=== PATIENT | female | born 1980 | race African-American/Black ===

== ENCOUNTER 2022-03-25 11:25 | Observation (INO) ==
[2022-03-25 11:55] LABS: Basophils % 0.1 % (0.0-0.8); Eosinophils % 0.1 % (0.00-10.9); Hematocrit 36.7 VOL% (35.7-47.0); Hemoglobin 11.5 GM/DL (12.0-16.0); Immature Granulocytes % 0.4 %; Immature Granulocytes Absolute 0.07 #; Lymphocytes # 1.1 10*3/uL (1.4-4.0); Lymphocytes % 6.6 % (21.3-54.2); Mean Corpuscular HGB Conc 31.3 GM/DL (32-36); Mean Corpuscular Volume 85.5 FL (87-102); Monocytes # 0.7 10*3/uL (0.11-0.8); Monocytes % 4.1 % (1.7-12.7); Neutrophils % 88.7 % (38.7-73.9); Platelet Count 292 T/CUMM (130-400); Red Blood Count 4.29 MC/CUMM (3.8-5.5); Red Cell Distribution Width 17.1 % (9.3-17.3); White Blood Count 16.2 T/CUMM (4-12)
[2022-03-25 12:16] LABS: Albumin 3.8 G/DL (3.4-5.0); Bilirubin,Total 0.8 MG/DL (0.20-1.00); Calcium 8.7 MG/DL (8.5-10.1); Osmolality,Calculated 283.4 MOS/KG (273-304); Potassium 3.1 MMOL/L (3.5-5.1); Total Protein 6.8 G/DL (6.4-8.2)
[2022-03-25 12:22] LABS: Band Neutrophils 6 % (0-10); Lymphocytes 3 % (20-55); Total Cells Counted 100
[2022-03-25 12:25] LABS: Anisocytosis Slight; Ovalocytes Slight; Platelet Estimate Normal
[2022-03-25] MEDS ORDERED: LEVOFLOXACIN INJ 750 MG in PREMIX 1 EACH IV STA (13:42)
[2022-03-25] MEDS ORDERED: DEXAMETHASONE 4 MG/1 ML VIAL IV STA (13:45)
[2022-03-25 14:17] LABS: Arterial Base Excess iSTAT -3 MMOL/L (-2.5-2.5); Arterial Bicarbonate iSTAT 20.7 MMOL/L (20-26); Arterial O2 Saturation iSTAT 98 % (95-100); Arterial PCO2 iSTAT 33 MM HG (35-48); Arterial PO2 iSTAT 101 MM HG (80-95); Arterial Total CO2 iSTAT 22 MMO/L (23-27); Arterial pH iSTAT 7.408 (7.35-7.45)
[2022-03-25] MEDS ORDERED: ONDANSETRON 4 MG/2 ML VIAL IV STA (14:28)
[2022-03-25] MEDS ORDERED: DEXTROSE 50% 25 GM/50 ML VIAL IV PRN (15:40)
[2022-03-25] MEDS ORDERED: SIMETHICONE CHEW 125 MG TABLET PO PRN (15:40)
[2022-03-25] MEDS ORDERED: DOCUSATE SODIUM 100 MG CAPSULE PO PRN (15:40)
[2022-03-25] MEDS ORDERED: ONDANSETRON 4 MG/2 ML VIAL IV PRN (15:40)
[2022-03-25] MEDS ORDERED: GLUCAGON 1 MG VIAL IM PRN ×2 (15:40)
[2022-03-25] MEDS ORDERED: hydrALAZINE 20 MG/1 ML VIAL IV PRN (15:40)
[2022-03-25] MEDS ORDERED: DEXTROSE 10% 250 ML BAG IV PRN (15:54)
[2022-03-25 18:03] LABS: Thyroid Stimulating Hormone 1.01 uIU/ml (0.358-3.74)
[2022-03-25] MEDS: methylPREDNISolone SOD SUC 40 MG/1 ML VIAL IV SCH (18:13)
[2022-03-25] MEDS: ENOXAPARIN 40 MG/0.4 ML SYRINGE SUBCUT SCH (18:13)
[2022-03-25] MEDS: LACTATED RINGERS 1,000 ML IV SCH (18:45)
[2022-03-25] MEDS: INSULIN LISPRO 100 UNIT/ML SUBCUT SCH ×2 (18:45→21:09)
[2022-03-25] MEDS: ACETAMINOPHEN 325 MG TABLET PO PRN (21:05)
[2022-03-25] MEDS ORDERED: tiZANidine 4 MG TABLET PO PRN (21:09)
[2022-03-25] MEDS ORDERED: PROMETHAZINE 25 MG TABLET PO PRN (21:09)
[2022-03-25] MEDS: TOPIRAMATE 100 MG TABLET PO SCH (21:38)
[2022-03-26] MEDS: LACTATED RINGERS 1,000 ML IV SCH ×2 (02:44→11:35)
[2022-03-26] MEDS: methylPREDNISolone SOD SUC 40 MG/1 ML VIAL IV SCH (04:06)
[2022-03-26 05:31] LABS: Basophils % 0.1 % (0.0-0.8); Hematocrit 34.6 VOL% (35.7-47.0); Hemoglobin 10.7 GM/DL (12.0-16.0); Immature Granulocytes Absolute 0.17 #; Lymphocytes # 1.1 10*3/uL (1.4-4.0); Lymphocytes % 6.3 % (21.3-54.2); Mean Corpuscular HGB Conc 30.9 GM/DL (32-36); Mean Corpuscular Volume 85.2 FL (87-102); Mean Platelet Volume 10.4 FL (9.6-12.0); Monocytes # 0.5 10*3/uL (0.11-0.8); Monocytes % 2.6 % (1.7-12.7); Platelet Count 300 T/CUMM (130-400); Red Blood Count 4.06 MC/CUMM (3.8-5.5); Red Cell Distribution Width 16.9 % (9.3-17.3); White Blood Count 17.6 T/CUMM (4-12)
[2022-03-26 05:57] LABS: Albumin 3.4 G/DL (3.4-5.0); Bilirubin,Total 0.8 MG/DL (0.20-1.00); Calcium 8.9 MG/DL (8.5-10.1); Lymphocytes 12 % (20-55); Osmolality,Calculated 280.4 MOS/KG (273-304); Platelet Estimate Adequate; Potassium 3.4 MMOL/L (3.5-5.1); Risk Ratio 2.72; Total Cells Counted 100; Total Protein 7.4 G/DL (6.4-8.2); VLDL Cholesterol 14.6 MG/DL
[2022-03-26] MEDS: INSULIN LISPRO 100 UNIT/ML SUBCUT SCH ×4 (08:31→20:44)
[2022-03-26] MEDS: hydroCHLOROthiazide 12.5 MG CAPSULE PO SCH (08:32)
[2022-03-26] MEDS: ASPIRIN EC 325 MG TABLET PO SCH (08:32)
[2022-03-26] MEDS: METOPROLOL SUCCINATE XL 50 MG TABLET PO SCH (08:33)
[2022-03-26] MEDS: LOSARTAN 50 MG TABLET PO SCH (08:33)
[2022-03-26] MEDS: OMEPRAZOLE ODT 20 MG TABLET PO SCH (08:33)
[2022-03-26] MEDS: amLODIPine 5 MG TABLET PO SCH (08:34)
[2022-03-26] MEDS ORDERED: POTASSIUM CHLORIDE 20 MEQ TABLET PO ONE (09:00)
[2022-03-26] MEDS ORDERED: LEVOFLOXACIN INJ 750 MG/150 ML PREMIX IV SCH (11:00)
[2022-03-26] MEDS: TOPIRAMATE 100 MG TABLET PO SCH (20:45)
[2022-03-26] MEDS: ENOXAPARIN 40 MG/0.4 ML SYRINGE SUBCUT SCH (20:45)
[2022-03-27] MEDS: ACETAMINOPHEN 325 MG TABLET PO PRN (00:10)
[2022-03-27] MEDS: LACTATED RINGERS 1,000 ML IV SCH (00:18)
[2022-03-27 05:30] LABS: Basophils % 0.1 % (0.0-0.8); Eosinophils % 0.1 % (0.00-10.9); Hematocrit 31.7 VOL% (35.7-47.0); Hemoglobin 9.8 GM/DL (12.0-16.0); Immature Granulocytes % 0.6 %; Lymphocytes # 2.4 10*3/uL (1.4-4.0); Lymphocytes % 15.1 % (21.3-54.2); Mean Corpuscular HGB Conc 30.9 GM/DL (32-36); Monocytes # 0.8 10*3/uL (0.11-0.8); Monocytes % 5.3 % (1.7-12.7); Neutrophils % 78.8 % (38.7-73.9); Platelet Count 281 T/CUMM (130-400); Red Blood Count 3.73 MC/CUMM (3.8-5.5); Red Cell Distribution Width 17.2 % (9.3-17.3); White Blood Count 15.7 T/CUMM (4-12)
[2022-03-27 05:44] LABS: Calcium 8.6 MG/DL (8.5-10.1); Osmolality,Calculated 284.3 MOS/KG (273-304); Potassium 3.5 MMOL/L (3.5-5.1)
[2022-03-27] MEDS ORDERED: LEVOFLOXACIN 750 MG TABLET PO SCH (09:00)
[2022-03-27] MEDS: hydroCHLOROthiazide 12.5 MG CAPSULE PO SCH (09:35)
[2022-03-27] MEDS: LOSARTAN 50 MG TABLET PO SCH (09:35)
[2022-03-27] MEDS: OMEPRAZOLE ODT 20 MG TABLET PO SCH (09:35)
[2022-03-27] MEDS: ASPIRIN EC 325 MG TABLET PO SCH (09:35)
[2022-03-27] MEDS: amLODIPine 5 MG TABLET PO SCH (09:36)
[2022-03-27] MEDS: METOPROLOL SUCCINATE XL 50 MG TABLET PO SCH (09:36)
[2022-03-27] MEDS: INSULIN LISPRO 100 UNIT/ML SUBCUT SCH ×2 (09:36→11:47)
[2022-03-27 12:05] VITALS: BP 115/70
== END 2022-03-27 12:41 | disposition home or self-care (01) ==
LOC: N.ED 11:25 → SUATTDRO 15:40 → N.5E 15:40 → INTOOBSV 15:40 → N.5E 18:18
PROVIDERS: ADMIT Internal Medicine; ATTEND Internal Medicine